=== PATIENT | female | born 1975 | race African-American/Black ===

== ENCOUNTER 2019-08-29 21:27 | Emergency (ER) | payer BC ==
[~2019-08-29] VITALS: Ht 165.1 cm; Wt 88.6 kg
[2019-08-29] MEDS ORDERED: ACETAMINOPHEN 500 MG TABLET PO ONE (22:00)
[2019-08-29] MEDS ORDERED: IBUPROFEN 400 MG TABLET. PO ONE (22:00)
[2019-08-29] MEDS ORDERED: OSEL75CA PO (22:18)
--- NOTE | 2019-08-29 22:19 | PHYS DOC ---
Past Medical History Past Medical History: No Pertinent History (MELISSA MUELLER APRN) Past Surgical History: Hysterectomy (MELISSA MUELLER APRN) Smoking Status: Never Smoker Alcohol Use: Occasionally (MELISSA MUELLER APRN) Attending Signature I have participated in the care of this patient and I have reviewed and agree with all pertinent clinical information above including history, exam, and recommendations. (MELVIN BONILLA MD) Adult General Chief Complaint Chief Complaint: FEVER HPI HPI Patient is a 43 year old female who presents to the emergency department with complaints of fever, body aches, chills, fatigue, dry cough, and headache that began today. She denies a nasal congestion, runny nose, shortness breath, wheezing, chest pain, palpitations, dizziness, numbness, tingling, weakness, nausea, vomiting, diarrhea, or abdominal pain. 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 She has not taken any Tylenol or ibuprofen since earlier today. She currently rates her pain 8 out of 10 on the pain scale, she denies any alleviating factors. (MELISSA MUELLER APRN) Review of Systems Review of Systems All other systems were reviewed and found to be within normal limits, except as documented in this note. (MELISSA MUELLER APRN) Current Medications Current Medications Current Medications Medications (Trade) Dose Ordered Sig/Susan Start Time Stop Time Status Last Admin Dose Admin Acetaminophen (Tylenol) 1,000 mg 1X ONCE 08/29/19 22:00 08/29/19 22:01 DC 08/29/19 22:00 1,000 MG Ibuprofen (Motrin) 600 mg 1X ONCE 08/29/19 22:00 08/29/19 22:01 DC 08/29/19 22:00 600 MG (MELVIN BONILLA MD) Allergies Allergies Allergies Coded Allergies Type Severity Reaction Last Updated Verified No Known Drug Allergies 08/29/19 No (MELVIN BONILLA MD) Physical Exam Physical Exam Constitutional: Well developed, well nourished, no acute distress, ill appearance HENT: Normocephalic, atraumatic, bilateral external ears normal, bilateral TMs normal, posterior pharynx normal oropharynx moist, nose congested with erythema and edema of the nasal turbinates bilaterally Eyes: PERRLA, conjunctiva injected bilaterally, no discharge. [] Neck: Normal range of motion, no stridor. [] Cardiovascular:Heart rate regular rhythm, no murmur [] Lungs & Thorax: Bilateral breath sounds clear to auscultation, Respirations even and unlabored, no retractions, no respiratory distress Skin: Warm, dry, no erythema, no rash. [] Back: No tenderness Extremities: No cyanosis, ROM intact Neurologic: Alert and oriented X 3, no focal deficits noted. [] Psychologic: Affect normal, judgement normal, mood normal. (MELISSA MUELLER APRN) Current Patient Data Vital Signs Vital Signs Date Time Temp Pulse Resp B/P (MAP) Pulse Ox O2 Delivery O2 Flow Rate FiO2 08/29/19 21:48 102.6 106 18 127/69 (88) 97 Room Air 102.6 (MELVIN BONILLA MD) EKG EKG [] (MELISSA MUELLER APRN) Radiology/Procedures Radiology/Procedures [] (MELISSA MUELLER APRN) Course & Med Decision Making Course & Med Decision Making Pertinent Labs and Imaging studies reviewed. (See chart for details) [] (MELISSA MUELLER APRN) Dragon Disclaimer Dragon Disclaimer This electronic medical record was generated, in whole or in part, using a voice recognition dictation system. (MELISSA MUELLER APRN) Departure Departure Impression: Primary Impression: Flu-like symptoms Additional Impression: Fever and chills Disposition: 01 HOME, SELF-CARE Condition: STABLE Referrals: AKBAR BALL MD (PCP) Patient Instructions: Fever, Adult, [id number], Influenza, Adult, [id number] Additional Instructions: Fill the prescription and take as directed. Alternate Tylenol and ibuprofen as needed for fever. Increase clear fluids and rest. Diet as tolerated. Recommend use of [id number] flu medications as needed for relief of your symptoms. F ollow up with your primary care doctor if symptoms persist, return to the ER symptoms worsen. Scripts Oseltamivir Phosphate (TAMIFLU) 75 Mg Capsule 1 CAP PO BID for 5 Days, #10 CAP 0 Refills Prov: MELISSA MUELLER APRN 08/29/19 Problem Qualifiers MELISSA MUELLER APRN Aug 29, 2019 22:18 MELVIN BONILLA MD Aug 29, 2019 22:53
[2019-08-29 22:57] VITALS: BP 127/78
== END 2019-08-29 22:57 | disposition home or self-care (01) ==
LOC: ER 21:27
DX: R50.9 Fever, unspecified (principal); R51 Headache; R05 Cough; R53.83 Other fatigue; R60.9 Edema, unspecified; L53.9 Erythematous condition, unspecified; Z90.710 Acquired absence of both cervix and uterus
CPT/HCPCS: 99283